=== PATIENT | female | born 1935 | race Caucasian/White ===

== ENCOUNTER → 2016-05-26 | Outpatient (REF) | payer OTHER, MEDICAID ==
[~2016-05-26] MED LIST: BIOT10005 PO; CELE100C PO; DONETAB6 PO; LIPI10TA PO; NAME10TA PO; NORCOTAB PO; NORT10CA2 PO; OXYB5TA PO; SERT-141 PO; VITA10002 PO; VITA100066 PO; VITA500T88 PO; VITMTA PO
[2016-05-26 14:21] LABS: BASO % 0.5 % (0.0-1.0); EOS # 0.1 K/mm3 (0.0-0.50); EOS % 1.7 % (0.0-3.0); LARGE UNSTAINED CELL # 0.1 K/mm3 (0.0-0.4); LARGE UNSTAINED CELL % 1.5 % (0.0-4.0); LYMPH # 0.8 K/mm3 (1.5-4.5); LYMPH % 19.4 % (24.0-44.0); MEAN CORPUSCULAR HEMOGLOBIN 31.9 pg (27.0-33.0); MEAN CORPUSCULAR HGB CONC 33.6 g/dl (32.0-36.5); MEAN CORPUSCULAR VOLUME 94.9 fl (80.0-96.0); MONO # 0.3 K/mm3 (0.0-0.8); MONO % 7.1 % (0.0-5.0); NEUTROPHILS # 2.7 K/mm3 (1.8-7.7); NEUTROPHILS % 69.8 % (36.0-66.0); PLATELET COUNT, AUTOMATED 199 k/mm3 (150-450); WHITE BLOOD COUNT 3.9 K/mm3 (4.0-10.0)
[2016-05-26 14:30] LABS: FOLATE > 24.0 NG/ML; VITAMIN B12 LEVEL 888 PG/ML
[2016-05-26 15:54] LABS: ERYTHROCYTE SEDIMENTATION RATE 19 mm/hr (0-30)
[2016-05-31 00:06] LABS: VITAMIN E LEVEL 16.5 mg/L (6.5-21.5)
== END ==
LOC: M LABNEURO 13:05
PROVIDERS: ATTEND Psychiatry & Neurology Neurology
DX: F03.90 Unspecified dementia, unspecified severity, without behavioral disturbance, psychotic disturbance, mood disturbance, and anxiety (principal)